=== PATIENT | female | born 2000 | race American Indian/Alaskan Native ===

== ENCOUNTER 2021-10-20 16:31 | Emergency (ER) | payer BC ==
--- NOTE | 2021-10-20 19:06 | Emergency Department Report ---
ED ENT HPI - General Chief complaint: Sore Throat Stated complaint: SORE THROAT Source: patient Mode of arrival: Ambulatory Limitations: No Limitations - History of Present Illness Initial comments: 21-year-old female complain of sore throat x1 day. She states she has a prior history of strep throat. Patient denies taking any qbjw-olv-gfbloor medication. She is alert and oriented x4. No trismus noted. No acute distress. No ill appearance noted. Patient denies any recent illness or recent or exposure to sick contact. MD complaint: sore throat Onset/Timin -: Gradual Severity scale (0 -10): 7 Quality: aching Consistency: intermittent Improves with: none Worsens with: swallowing Associated Symptoms: pain with swallowing, sore throat. denies: fever, cough - Related Data Previous Rx's Medication Instructions Recorded Last Taken Type Amoxicillin/Potassium Clav 1 each PO BID 10 Days #20 tab 10/20/21 Unknown Rx [Augmentin 875-125 Tablet] Ibuprofen [Motrin] 800 mg PO Q8HR PRN 15 Days #30 10/20/21 Unknown Rx tablet Allergies Allergy/AdvReac Type Severity Reaction Status Date / Time No Known Allergies Allergy Unverified 10/20/21 17:15 ED Dental HPI - General Chief complaint: Sore Throat Stated complaint: SORE THROAT Source: patient Mode of arrival: Ambulatory Limitations: No Limitations - Related Data Previous Rx's Medication Instructions Recorded Last Taken Type Amoxicillin/Potassium Clav 1 each PO BID 10 Days #20 tab 10/20/21 Unknown Rx [Augmentin 875-125 Tablet] Ibuprofen [Motrin] 800 mg PO Q8HR PRN 15 Days #30 10/20/21 Unknown Rx tablet Allergies Allergy/AdvReac Type Severity Reaction Status Date / Time No Known Allergies Allergy Unverified 10/20/21 17:15 ED Review of Systems ROS: Stated complaint: SORE THROAT Other details as noted in HPI Constitutional: denies: chills, fever Eyes: denies: eye pain, eye discharge, vision change ENT: throat pain. denies: ear pain Respiratory: denies: cough, shortness of breath, wheezing Cardiovascular: denies: chest pain, palpitations Endocrine: no symptoms reported Gastrointestinal: denies: abdominal pain, nausea, diarrhea Genitourinary: denies: urgency, dysuria, discharge Musculoskeletal: denies: back pain, joint swelling, arthralgia Skin: denies: rash, lesions Neurological: denies: headache, weakness, paresthesias Psychiatric: denies: anxiety, depression Hematological/Lymphatic: denies: easy bleeding, easy bruising ED Past Medical Hx - Medications Home Medications: Home Medications Medication Instructions Recorded Confirmed Last Taken Type Amoxicillin/Potassium Clav 1 each PO BID 10 Days #20 tab 10/20/21 Unknown Rx [Augmentin 875-125 Tablet] Ibuprofen [Motrin] 800 mg PO Q8HR PRN 15 Days #30 10/20/21 Unknown Rx tablet ED Physical Exam - General Limitations: No Limitations General appearance: alert, in no apparent distress - Head Head exam: Present: atraumatic, normocephalic - Eye Eye exam: Present: normal appearance - ENT ENT exam: Present: mucous membranes moist - Expanded ENT Exam Expanded Mouth exam: Present: normal external inspection Throat exam: Positive: tonsillar erythema, tonsillar exudate - Neck Neck exam: Present: normal inspection - Respiratory Respiratory exam: Present: normal lung sounds bilaterally. Absent: respiratory distress - Cardiovascular Cardiovascular Exam: Present: regular rate, normal rhythm. Absent: systolic murmur, diastolic murmur, rubs, gallop - GI/Abdominal GI/Abdominal exam: Present: soft, normal bowel sounds - Extremities Exam Extremities exam: Present: normal inspection - Back Exam Back exam: Present: normal inspection - Neurological Exam Neurological exam: Present: alert, oriented X3 - Psychiatric Psychiatric exam: Present: normal affect, normal mood - Skin Skin exam: Present: warm, dry, intact, normal color. Absent: rash ED Course Vital Signs 10/20/21 17:18 Temperature 98.4 F Pulse Rate 94 H Respiratory 20 Rate Blood Pressure 150/104 [Right] O2 Sat by Pulse 99 Oximetry ED Medical Decision Making - Medical Decision Making 21-year-old female complain of sore throat x1 day. She states she has a prior history of strep throat. Patient denies taking any dvoi-hxm-ozotjyl medication. She is alert and oriented x4. No trismus noted. No acute distress. No ill appearance noted. Patient denies any recent illness or recent or exposure to sick contact. Patient is current hypertension. Will not treat asymptomatic hypertension. Patient to follow-up with primary care doctor . Follow ENT for recurrent strep throat. Discussed plan of care with patient. Rapid strep negative. Will treat patient with antibiotic. Patient discharged stable Critical care attestation.: If time is entered above; I have spent that time in minutes in the direct care of this critically ill patient, excluding procedure time. ED Disposition Clinical Impression: Tonsillitis Disposition: HOME / SELF CARE / HOMELESS Is pt being admited?: No Does the pt Need Aspirin: No Condition: Stable Instructions: Tonsillitis, Mvom-nb-Kavy Additional Instructions: Take medication prescribed Follow-up with primary care doctor as needed Return to ED with any worsening symptoms Prescriptions: Amoxicillin/Potassium Clav [Augmentin 875-125 Tablet] 1 each PO BID 10 Days #20 tab Ibuprofen [Motrin] 800 mg PO Q8HR PRN 15 Days #30 tablet PRN Reason: Pain, Moderate (4-6) Referrals: PRIMARY CARE,MD [Primary Care Provider] - 3-5 Days [facility] [Provider Group] - 3-5 Days Forms: Work/School Release Form(ED)
[2021-10-20 20:00] VITALS: BP 141/91
== END 2021-10-20 19:20 | disposition home or self-care (01) ==
LOC: ED 16:31
DX: J03.90 Acute tonsillitis, unspecified (principal)
CPT/HCPCS: 87116; 87430; 99283

== ENCOUNTER 2022-04-06 11:47 | Emergency (ER) | payer BC, MEDICAID ==
--- NOTE | 2022-04-06 11:55 | Emergency Department Report ---
Stated Complaint: VAGINAL BLEEDING Time Seen by Provider: 04/06/22 11:53 - HPI History of Present Illness: 21-year-old black female presents to the emergency department for evaluation of vaginal bleeding. She states that she started her period on March 13 and has been having bleeding since then. She states that she saturates 1-2 pads per day. She denies dizziness or weakness at this time but states that she has a history of acute anemia and has had to have blood transfusion when she had her period for so long. - ROS Review of Systems: Denies abdominal pain, nausea, vomiting, diarrhea, dizziness, and weakness - Exam Physical Exam: No abdominal tenderness on palpation. MSE screening note: Focused history and physical exam performed. Due to findings the following was ordered: ED Disposition for MSE Condition: Stable
[2022-04-06 12:19] LABS: HCG Qualitative,Urine Negative (Negative)
[2022-04-06 12:20] LABS: Bilirubin,Urine NEG (Negative); Blood,Urine LG (Negative); Color,Urine Yellow (Yellow); Urobilinogen,Urine < 2.0 mg/dL (<2.0)
[2022-04-06 12:24] LABS: Mucus,Urine FEW /HPF
[2022-04-06 12:25] LABS: RBC,Urine > 182.0 /HPF (0.0-6.0)
[2022-04-06 12:52] LABS: Hematocrit 28.4 % (30.3-42.9); Hemoglobin 8.9 gm/dl (10.1-14.3); Mean Corpuscular HGB Conc 32 % (30-34); Mean Corpuscular Volume 76 fl (79-97); Platelet Count 377 K/mm3 (140-440); Red Blood Count 3.76 M/mm3 (3.65-5.03); Red Cell Distribution Width 19.6 % (13.2-15.2)
[2022-04-06 13:05] LABS: Blood Urea Nitrogen 10 mg/dL (7-17); Calcium 9.6 mg/dL (8.4-10.2); Hemolysis Index 2
[2022-04-06 13:07] LABS: BUN/Creatinine Ratio 14
--- NOTE | 2022-04-06 13:23 | Emergency Department Report ---
ED Female HPI - General Chief complaint: Vaginal Bleeding Stated complaint: VAGINAL BLEEDING Time Seen by Provider: 04/06/22 11:53 Source: patient Mode of arrival: Ambulatory Limitations: No Limitations - History of Present Illness Initial comments: 21-year-old black female presents to the emergency department for evaluation of vaginal bleeding. She states that she started her period on March 13 and has been having bleeding since then. She states that she saturates 1-2 pads per day. She denies dizziness or weakness at this time but states that she has a history of acute anemia and has had to have blood transfusion when she had her period for so long. She states that she has irregular cycle. Denies any control method at present time. Patient denies any abdominal pain ,nausea vomiting at present time. No acute distress noted. No ill appearance noted. MD Complaint: vaginal bleeding - Related Data Previous Rx's Medication Instructions Recorded Last Taken Type Ferrous Sulfate [Ferrous Sulfate 324 mg PO DAILY 30 Days #30 tab 04/06/22 Unknown Rx 324 MG] Allergies Allergy/AdvReac Type Severity Reaction Status Date / Time No Known Allergies Allergy Verified 04/06/22 12:50 ED Review of Systems ROS: Stated complaint: VAGINAL BLEEDING Other details as noted in HPI Constitutional: denies: chills, fever Eyes: denies: eye pain, eye discharge, vision change ENT: denies: ear pain, throat pain Respiratory: denies: cough, shortness of breath, wheezing Cardiovascular: denies: chest pain, palpitations Endocrine: no symptoms reported Gastrointestinal: denies: abdominal pain, nausea, diarrhea Genitourinary: denies: urgency, dysuria, discharge Musculoskeletal: denies: back pain, joint swelling, arthralgia Skin: denies: rash, lesions Neurological: denies: headache, weakness, paresthesias Psychiatric: denies: anxiety, depression Hematological/Lymphatic: denies: easy bleeding, easy bruising ED Past Medical Hx - Past Medical History Previous Medical History?: Yes Additional medical history: anemia - Surgical History Past Surgical History?: No - Medications Home Medications: Home Medications Medication Instructions Recorded Confirmed Last Taken Type Ferrous Sulfate [Ferrous Sulfate 324 mg PO DAILY 30 Days #30 tab 04/06/22 Unknown Rx 324 MG] ED Physical Exam - General Limitations: No Limitations General appearance: alert, in no apparent distress - Head Head exam: Present: atraumatic, normocephalic - Eye Eye exam: Present: normal appearance - ENT ENT exam: Present: mucous membranes moist - Neck Neck exam: Present: normal inspection - Respiratory Respiratory exam: Present: normal lung sounds bilaterally. Absent: respiratory distress - Cardiovascular Cardiovascular Exam: Present: regular rate, normal rhythm. Absent: systolic murmur, diastolic murmur, rubs, gallop - GI/Abdominal GI/Abdominal exam: Present: soft, normal bowel sounds - Speculum exam: Present: vaginal bleeding - Extremities Exam Extremities exam: Present: normal inspection - Back Exam Back exam: Present: normal inspection - Neurological Exam Neurological exam: Present: alert, oriented X3 - Psychiatric Psychiatric exam: Present: normal affect, normal mood - Skin Skin exam: Present: warm, dry, intact, normal color. Absent: rash ED Course Vital Signs 04/06/22 11:52 Temperature 98.5 F Pulse Rate 88 Respiratory 18 Rate Blood Pressure 124/86 O2 Sat by Pulse 100 Oximetry ED Medical Decision Making - Lab Data Result diagrams: 04/06/22 12:28 04/06/22 12:28 - Medical Decision Making 21-year-old black female presents to the emergency department for evaluation of vaginal bleeding. She states that she started her period on March 13 and has been having bleeding since then. She states that she saturates 1-2 pads per day. She denies dizziness or weakness at this time but states that she has a history of acute anemia and has had to have blood transfusion when she had her period for so long. She states that she has irregular cycle. Denies any control method at present time. Patient denies any abdominal pain ,nausea vomiting at present time. No acute distress noted. No ill appearance noted. Physical examination is unremarkable. Patient declined to have ultrasound at present time. States she will follow-up with [facility]. Patient H&H and 8.07/03.4. Advised patient to take yyjx-oee-[id number] iron supplement. Rechecked the patient is resting quietly quietly and comfortable and feeling better. I discussed the results of diagnostic study, my clinical impression and the plan for further treatment with the patient. Patient agrees with plan and discharge at this present time. All question addressed. I have given the patient instruction regarding a diagnosis ,expectation ,follow- up and return precaution. I explained to the patient that emergent condition may arise and to return to the ED for new worsen and any new persisting condition. I have explained the importance of following up with the primary care physician or referral physician listed below has instructed. The patient verbalized understanding of discharge instruction. Abnormal Lab Results 04/06/22 04/06/22 04/06/22 12:28 12:28 Unknown WBC 6.5 RBC 3.76 Hgb 8.9 L Hct 28.4 L MCV 76 L MCH 24 L MCHC 32 RDW 19.6 H Plt Count 377 Sodium 141 Potassium 4.6 Chloride 105.3 Carbon Dioxide 25 Anion Gap 15 BUN 10 Creatinine 0.7 Estimated GFR > 60 BUN/Creatinine Ratio 14 Glucose 95 Calcium 9.6 Urine Color Yellow Urine Turbidity Hazy Urine pH 6.0 Ur Specific [place] 1.016 Urine Protein 30 mg/dl Urine Glucose (UA) Neg Urine Ketones Neg Urine Blood Lg Urine Nitrite Neg Ur Reducing Substances Not Reportable Urine Bilirubin Neg Urine Ictotest Not Reportable Urine Urobilinogen < 2.0 Ur Leukocyte Esterase Neg Urine WBC (Auto) 6.0 Urine RBC (Auto) > 182.0 U Epithel Cells (Auto) 6.0 Urine Mucus Few Urine HCG, Qual Negative Critical care attestation.: If time is entered above; I have spent that time in minutes in the direct care of this critically ill patient, excluding procedure time. ED Disposition Clinical Impression: Menorrhagia with irregular cycle Disposition: 01 HOME / SELF CARE / HOMELESS Is pt being admited?: No Does the pt Need Aspirin: No Condition: Stable Instructions: Menorrhagia Additional Instructions: Take nzoj-nbq-otnvuyg iron supplement Return to ED for worsening symptom Prescriptions: Ferrous Sulfate [Ferrous Sulfate 324 MG] 324 mg PO DAILY 30 Days #30 tab Referrals: [facility] [Provider Group] - 3-5 Days Forms: Work/School Release Form(ED) Time of Disposition: 13:28
[2022-04-06 13:48] VITALS: BP 133/72
== END 2022-04-06 13:58 | disposition home or self-care (01) ==
LOC: ED 11:47
DX: N92.0 Excessive and frequent menstruation with regular cycle (principal)
CPT/HCPCS: 36415; 80048; 81001; 81025; 85027; 99283

== ENCOUNTER 2022-04-18 21:46 | Emergency (ER) | payer MEDICAID ==
--- NOTE | 2022-04-19 09:47 | Emergency Department Report ---
ED Female HPI - General Chief complaint: Vaginal Bleeding Stated complaint: PAZ Time Seen by Provider: 04/19/22 08:08 Source: patient Mode of arrival: Ambulatory Limitations: No Limitations - History of Present Illness Initial comments: This is a 21-year-old female that comes to the emergency room because she is having menstrual pain and concerned that she is anemic. She has dysmenorrhea and metromenorrhagia and she is concerned that the bleeding is heavier than normal. She has no tachycardia or hypotension. No fever or chills. No abdominal pain outside of her usual cramping. No back pain. Patient denies any headache. She denies chest pain or shortness of breath. -: Gradual Improves with: menstrual period Are you Now?: Yes Associated Symptoms: denies other symptoms, vaginal bleeding. denies: vaginal discharge, abdominal pain, nausea/vomiting, fever/chills, headaches, loss of appetite, dysuria, hematuria, rash, seizure, shortness of breath, syncope, weakness - Related Data Previous Rx's Medication Instructions Recorded Last Taken Type Ferrous Sulfate [Ferrous Sulfate 324 mg PO DAILY 30 Days #30 tab 04/06/22 Unknown Rx 324 MG] Allergies Allergy/AdvReac Type Severity Reaction Status Date / Time No Known Allergies Allergy Verified 04/06/22 12:50 ED Review of Systems ROS: Stated complaint: PAZ Other details as noted in HPI Comment: All other systems reviewed and negative ED Past Medical Hx - Past Medical History Previous Medical History?: Yes Additional medical history: anemia - Surgical History Past Surgical History?: No - Family History Family history: no significant - Social History Smoking Status: Never Smoker Substance Use Type: None - Medications Home Medications: Home Medications Medication Instructions Recorded Confirmed Last Taken Type Ferrous Sulfate [Ferrous Sulfate 324 mg PO DAILY 30 Days #30 tab 04/06/22 Unknown Rx 324 MG] ED Physical Exam - General Limitations: No Limitations General appearance: alert, in no apparent distress - Head Head exam: Present: atraumatic, normocephalic - Eye Eye exam: Present: normal appearance - ENT ENT exam: Present: mucous membranes moist - Neck Neck exam: Present: normal inspection - Respiratory Respiratory exam: Present: normal lung sounds bilaterally. Absent: respiratory distress - Cardiovascular Cardiovascular Exam: Present: regular rate, normal rhythm. Absent: systolic murmur, diastolic murmur, rubs, gallop - GI/Abdominal GI/Abdominal exam: Present: soft, normal bowel sounds - Extremities Exam Extremities exam: Present: normal inspection - Back Exam Back exam: Present: normal inspection - Neurological Exam Neurological exam: Present: alert, oriented X3 - Psychiatric Psychiatric exam: Present: normal affect, normal mood - Skin Skin exam: Present: warm, dry, intact, normal color. Absent: rash ED Course Vital Signs 04/18/22 04/19/22 04/19/22 21:57 12:42 12:43 Temperature 98.7 F 98.6 F Pulse Rate 89 82 Respiratory 18 Rate Blood Pressure 131/91 Blood Pressure 163/83 [Right] O2 Sat by Pulse 100 96 96 Oximetry ED Medical Decision Making - Lab Data Result diagrams: 04/19/22 09:24 - Medical Decision Making Vital Signs 04/18/22 21:57 Temperature 98.7 F Pulse Rate 89 Respiratory 18 Rate Blood Pressure 131/91 O2 Sat by Pulse 100 Oximetry Labs 04/19/22 04/19/22 09:24 11:00 WBC 7.5 RBC 3.69 Hgb 8.2 L Hct 27.3 L MCV 74 L MCH 22 L MCHC 30 RDW 19.1 H Plt Count 398 Urine Bilirubin Neg Hemoglobin is stable as when compared to past. test is negative. Vital Signs 04/18/22 04/19/22 04/19/22 21:57 12:42 12:43 Temperature 98.7 F 98.6 F Pulse Rate 89 82 Respiratory 18 Rate Blood Pressure 131/91 Blood Pressure 163/83 [Right] O2 Sat by Pulse 100 96 96 Oximetry Labs 04/19/22 04/19/22 09:24 11:00 WBC 7.5 RBC 3.69 Hgb 8.2 L Hct 27.3 L MCV 74 L MCH 22 L MCHC 30 RDW 19.1 H Plt Count 398 Urine Color Yellow Urine Turbidity Slightly-cloudy Urine pH 5.0 Ur Specific [place] 1.023 Urine Protein <15 mg/dl Urine Glucose (UA) Neg Urine Ketones Neg Urine Blood Neg Urine Nitrite Neg Urine Bilirubin Neg Urine Urobilinogen 2.0 Ur Leukocyte Esterase Neg Urine WBC (Auto) 2.0 Urine RBC (Auto) 1.0 U Epithel Cells (Auto) 1.0 Urine Bacteria (Auto) 1+ Urine Mucus 3+ Urine HCG, Qual Negative UA noted. Given patient has no hypotension or tachycardia she is being discharged with a stable hemoglobin in the eights. She has been instructed to follow-up with [facility]. She verbalizes understanding. - Differential Diagnosis Rule out symptomatic anemia Critical care attestation.: If time is entered above; I have spent that time in minutes in the direct care of this critically ill patient, excluding procedure time. ED Disposition Clinical Impression: Menorrhagia with irregular cycle, Chronic anemia Disposition: 01 HOME / SELF CARE / HOMELESS Is pt being admited?: No Does the pt Need Aspirin: No Condition: Stable Instructions: Dysmenorrhea, [id number] Additional Instructions: motrin or tylenol for pain negative hgb stable follow up with obgyn Referrals: CHARLENE GIRON MD [Primary Care Provider] - 3-5 Days GUILLERMO COREAS MD [Staff Physician] - 3-5 Days Forms: Work/School Release Form(ED) Time of Disposition: 11:49
[2022-04-19 10:20] LABS: Hematocrit 27.3 % (30.3-42.9); Hemoglobin 8.2 gm/dl (10.1-14.3); Mean Corpuscular HGB Conc 30 % (30-34); Mean Corpuscular Volume 74 fl (79-97); Platelet Count 398 K/mm3 (140-440); Red Blood Count 3.69 M/mm3 (3.65-5.03); Red Cell Distribution Width 19.1 % (13.2-15.2)
[2022-04-19] MEDS ORDERED: IBUPROFEN 800 MG TAB PO ONE (11:28)
[2022-04-19 11:35] LABS: Bilirubin,Urine NEG (Negative); Blood,Urine NEG (Negative); Color,Urine Yellow (Yellow); Protein,Urine <15 mg/dL mg/dL (Negative)
[2022-04-19 11:49] LABS: Bacteria,Urine 1+ /HPF (Negative); Mucus,Urine 3+ /HPF
[2022-04-19 11:53] LABS: HCG Qualitative,Urine Negative (Negative)
[2022-04-19 12:52] VITALS: BP 163/83
== END 2022-04-19 12:54 | disposition home or self-care (01) ==
LOC: ED 21:46
DX: N92.0 Excessive and frequent menstruation with regular cycle (principal); D64.9 Anemia, unspecified
CPT/HCPCS: 36415; 81001; 81025; 85027; 99283